=== PATIENT | female | born 1980 | race Hispanic/Latino ===

== ENCOUNTER 2019-05-22 06:46 | Day surgery (SDC) | payer BC, OTHER ==
[2019-05-21 14:44] LABS: BASOPHILS % (AUTO) 0.4 % (0.0-5.0); EOSINOPHILS % (AUTO) 1.7 % (0.0-8.0); HEMATOCRIT 40.1 % (36-48); LYMPHOCYTES % (AUTO) 20.3 % (21.0-51.0); MEAN CORPUSCULAR HEMOGLOBIN 31.5 pg (27.0-33.0); MEAN CORPUSCULAR HGB CONC 34.9 g/dL (32.0-36.0); MEAN CORPUSCULAR VOLUME 90.3 fL (79-99); MONOCYTES % (AUTO) 4.9 % (3.0-13.0); NEUTROPHILS % (AUTO) 72.5 % (40.0-77.0); PLATELET COUNT (AUTO) 195 K/uL (130-400); RED BLOOD CELL COUNT(AUTO) 4.44 MIL/uL (4.00-5.50); RED CELL DISTRIBUTION WIDTH 11.8 % (11.0-15.5); WHITE BLOOD COUNT (AUTO) 5.3 K/uL (4.8-10.8)
[2019-05-21 15:12] VITALS: BP 119/82
[~2019-05-22] VITALS: Ht 162.6 cm; Wt 59.3 kg
[2019-05-22] VITALS (17 sets, daily range): BP systolic 105–138; BP diastolic 50–82
[2019-05-22] MEDS: CEFAZOLIN SODIUM 1 GM VIAL IVP SCH ×2 (08:00→08:34)
[2019-05-22] MEDS: CALDOLOR 800MG+NS 250ML 250 ML IV SCH ×2 (08:00→08:50)
[2019-05-22] MEDS: LACTATED RINGERS 1000ML 1,000 ML IV SCH ×2 (08:15→09:05)
[2019-05-22] MEDS ORDERED: MIDAZOLAM HCL 1 MG/ML 2ML VIAL ONE (08:31)
[2019-05-22] MEDS ORDERED: LIDOCAINE PF 2% 5ML ABBOJECT ONE (08:31)
[2019-05-22] MEDS ORDERED: DEXAMETHASONE SOD PHOSPHATE 10MG/ML 1ML VIAL ONE (08:31)
[2019-05-22] MEDS ORDERED: ONDANSETRON HCL 4 MG/2 ML VIAL ONE (08:32)
[2019-05-22] MEDS ORDERED: FENTANYL CITRATE PF 50 MCG/1 ML 2ML VIAL ONE ×2 (08:32→10:10)
[2019-05-22] MEDS ORDERED: ROCURONIUM 10MG/1ML SYR 10 MG/ML ML ONE (08:32)
[2019-05-22] MEDS ORDERED: PROPOFOL 10 MG/ML 20ML VIAL IV ONE (08:32)
[2019-05-22] MEDS ORDERED: BUPIVACAINE/PF 0.25% 50ML VIAL IJ ONE (08:58)
[2019-05-22] MEDS ORDERED: GLYCOPYRROLATE 1 MG/5 ML SYRINGE ONE (09:17)
[2019-05-22] MEDS ORDERED: NEOSTIGMINE 5MG/5ML SYR IV ONE (09:17)
[2019-05-22] MEDS ORDERED: MEPERIDINE-PF 25 MG/ML SYG ONE ×2 (09:50→09:59)
== END 2019-05-22 11:35 | disposition home or self-care (01) ==
LOC: DAH 06:46
PROVIDERS: ATTEND Obstetrics & Gynecology
DX: Z30.2 Encounter for sterilization (principal); N84.1 Polyp of cervix uteri; Z88.6 Allergy status to analgesic agent; N92.1 Excessive and frequent menstruation with irregular cycle; Z90.49 Acquired absence of other specified parts of digestive tract; Z91.018 Allergy to other foods; Z88.9 Allergy status to unspecified drugs, medicaments and biological substances; Z88.8 Allergy status to other drugs, medicaments and biological substances; N85.4 Malposition of uterus
CPT/HCPCS: 36415; 58670; 58563; 84703; 85025; 86850; 86900; 86901; 88305; A4213; A4215; A4221; A4222; A4223 ×2; A4351; A4355; A4663; A4930; A6260; C1769 ×2; G0168; J0690; J1100; J1741; J2001; J2175 ×2; J2250; J2405; J2704; J2710; J3010 ×2; J3490 ×2; J7030; J7120

== ENCOUNTER → 2021-03-08 | Outpatient (CLI) | payer BC, OTHER ==
[2021-03-08 12:02] LABS: PLATELET FUNCTION ANALYSIS ADP 121 SEC (62-100); PLATELET FUNCTION ANALYSIS EPI 211 SEC (55-192)
[2021-03-08 12:13] LABS: HEMATOCRIT 40.6 % (36-48); PLATELET COUNT (AUTO) 195 K/uL (130-400)
== END | disposition home or self-care (01) ==
LOC: LAB 09:39
PROVIDERS: ATTEND Internal Medicine
DX: R23.3 Spontaneous ecchymoses (principal)
CPT/HCPCS: 36415; 85240; 85576

== ENCOUNTER → 2024-11-17 | Outpatient (CLI) | payer BC, OTHER | END | disposition home or self-care (01) | LOC: RAH 13:51 | PROVIDERS: ATTEND Nurse Practitioner Family | DX: Z78.0 Asymptomatic menopausal state (principal); Z85.3 Personal history of malignant neoplasm of breast | CPT/HCPCS: 77080 ==